=== PATIENT | male | born 1940 | race Caucasian/White ===

== ENCOUNTER → 2016-04-28 | Day surgery (SDC) | payer OTHER ==
[2016-04-26 10:28] LABS: HCT 41.4 % (42.0-52.0); HGB 13.7 g/dl (13.2-18.0); MCH 31.7 pg (25.0-31.0); MCHC 33.1 g/dL (32.0-36.0); MCV 95.8 fL (78.0-100.0); MPV 10.2 fL (6.0-9.5); RBC 4.32 M/uL (4.70-6.00); RDW 12.9 % (11.5-14.0); WBC 5.1 K/uL (4.0-10.5)
[2016-04-26 10:45] LABS: ALBUMIN 4.2 g/dL (3.4-4.8); BILIRUBIN - TOTAL 0.3 mg/dL (0.1-1.0); GLOBULIN (CALCULATION) 2.9 g/dL (2.2-4.2); POTASSIUM 3.9 mmol/L (3.5-5.1); TOTAL PROTEIN 7.1 g/dL (6.4-8.3)
[~2016-04-28] VITALS: Ht 165.1 cm; Wt 86.2 kg
== END | disposition home or self-care (01) ==
LOC: FAS 09:45
PROVIDERS: Orthopaedic Surgery
DX: M65.312 Trigger thumb, left thumb (principal); M65.342 Trigger finger, left ring finger; I10 Essential (primary) hypertension; E11.9 Type 2 diabetes mellitus without complications; J44.9 Chronic obstructive pulmonary disease, unspecified; Z85.46 Personal history of malignant neoplasm of prostate; Z87.01 Personal history of pneumonia (recurrent); Z87.442 Personal history of urinary calculi; Z90.79 Acquired absence of other genital organ(s); Z79.899 Other long term (current) drug therapy; Z98.890 Other specified postprocedural states
CPT/HCPCS: 36415; 71020; 80053; 93005; J2704; J3010